=== PATIENT | male | born 1960 | race Asian ===

== ENCOUNTER 2022-11-14 15:41 | Emergency (ER) | payer MEDICAID ==
[~2022-11-14] VITALS: Ht 172.7 cm; Wt 67.2 kg
[2022-11-14 15:55] VITALS: BP 118/80
[2022-11-14] MEDS ORDERED: PHENSUP38 PR ×3 (16:20→19:17)
[2022-11-14] MEDS ORDERED: DOCU-94 PO ×3 (16:20→19:17)
== END 2022-11-14 18:17 | disposition home or self-care (01) ==
LOC: ER 15:41
DX: K64.8 Other hemorrhoids (principal)

== ENCOUNTER 2022-11-16 18:16 | Emergency (ER) | payer MEDICAID ==
[~2022-11-16] VITALS: Ht 172.7 cm; Wt 67.6 kg
[~2022-11-16 18:16] MED LIST: DOCU-94 PO; PHENSUP38 PR
[2022-11-16 18:54] LABS: Hematocrit 42.6 % (41.0-53.0); Hemoglobin 14.5 g/dL (13.5-17.5); Mean Corpuscular Hemoglobin 28.9 pg (28.0-32.0); Mean Corpuscular Hgb Conc. 34.1 g/dL (32.0-36.0); Mean Corpuscular Volume 84.7 fL (80.0-100.0); Red Blood Cells 5.03 10^6/uL (4.5-5.90); Red Cell Distribution Width 12.2 % (11.8-14.3)
[2022-11-16 19:10] LABS: Band Neutrophils % (manual) 0; Basophils % (manual) 0 (0.0-2.0); Blast Cells 0; Metamyelocytes % 0; Myelocytes % 0; Promyelocytes % 0; Reactive Lymphocytes 0
[2022-11-16] MEDS ORDERED: HYDR2.5C39 TOP (19:21)
[2022-11-16] MEDS ORDERED: [UNRECOGNIZED DRUG - CODE] EX (19:23)
[2022-11-16 19:25] LABS: Albumin 3.7 g/dL (3.4-5.0); BUN/Creatinine Ratio 18.2 (10.0-20.0); Calcium 8.8 mg/dL (8.5-10.1); Potassium 4.2 mmol/L (3.5-5.1)
[2022-11-16 19:28] LABS: Bilirubin, Total 0.5 mg/dL (0.2-1.0); Total Protein 7.1 g/dL (6.4-8.2)
[2022-11-16 20:02] LABS: Eosinophils % (manual) 21 (0-7); Lymphocytes % (manual) 49 (10.0-50.0); Monocytes % (manual) 6 (0-12)
[2022-11-16] MEDS ORDERED: DOCU-94 PO (20:14)
[2022-11-16] MEDS ORDERED: POLY33504 PO (20:35)
[2022-11-17 00:03] VITALS: BP 104/72
== END 2022-11-17 00:08 | disposition home or self-care (01) ==
LOC: ER 18:16
DX: K64.9 Unspecified hemorrhoids (principal); K62.5 Hemorrhage of anus and rectum
CPT/HCPCS: 36415; 74176; 80053; 83690; 84484; 85007; 85027; 93005